=== PATIENT | female | born 1995 | race Hispanic/Latino ===

== ENCOUNTER → 2024-07-29 | Outpatient (CLI) | payer BC ==
[~2024-07-29] MED LIST: GADOTERATE MEGLUMINE 10 MMOL/20 ML VIAL IV ONE
== END | disposition home or self-care (01) ==
LOC: RAH 08:52
PROVIDERS: ATTEND Family Medicine
DX: G43.701 Chronic migraine without aura, not intractable, with status migrainosus (principal); N64.52 Nipple discharge; R79.89 Other specified abnormal findings of blood chemistry
CPT/HCPCS: 70553; A9575